=== PATIENT | female | born 1945 | race Caucasian/White ===

== ENCOUNTER 2017-03-30 08:36 | Emergency (ER) | payer OTHER ==
--- NOTE | 2017-03-30 08:40 | UC ---
Abdominal Pain Female HPI - HPI Summary HPI Summary: 72 YEAR OLD FEMALE PRESENTS WITH ABDOMINAL PAIN AND BACK PAIN. I WILL SEND HER TO THE ER TO RULE OUT AORTIC DISSECTION. - History of Current Complaint Stated Complaint: ADB PAIN,BACK PAIN Time Seen by Provider: 03/30/17 08:39 Allergies/Adverse Reactions: Allergies Allergy/AdvReac Type Severity Reaction Status Date / Time Erythromycin Allergy Itching Verified 03/30/17 08:47 PMH/Surg Hx/FS Hx/Imm Hx Previously Healthy: Yes - Surgical History Surgical History: Yes Surgery Procedure, Year, and Place: GALLBLADDER, HYSTERECTOMY,TONSILS, LSP SURGERY 5YRS AGO [facility], [place] - Family History Known Family History: Positive: Cardiac Disease - Social History Alcohol Use: Rare Substance Use Type: None Smoking Status (MU): Former Smoker When Did the Patient Quit Smoking/Using Tobacco: about 50 years ago - Immunization History Most Recent Influenza Vaccination: [id number] Review of Systems Constitutional: Negative Skin: Negative Eyes: Negative ENT: Negative Respiratory: Negative Cardiovascular: Negative Gastrointestinal: Abdominal Pain Genitourinary: Negative Motor: Negative Neurovascular: Negative Musculoskeletal: Other: - BACK PAIN Neurological: Negative Psychological: Negative All Other Systems Reviewed And Are Negative: Yes Physical Exam Triage Information Reviewed: Yes Eye Exam: Normal ENT Exam: Normal Dental Exam: Normal Neck exam: Normal Neck: Positive: 1 Respiratory Exam: Normal Cardiovascular Exam: Normal Musculoskeletal: Positive: Other: - LOWER BACK PAIN Neurological Exam: Normal Psychological Exam: Normal Skin Exam: Normal Abd Pain Female Course/Dx - Differential Dx/Diagnosis Provider Diagnoses: BACK PAIN. ABDOMINAL PAIN Discharge - Discharge Plan Condition: Stable Disposition: HOME Patient Education Materials: Abdominal Pain (ED) Referrals: Genet Waterman MD [Primary Care Provider] - Additional Instructions: PLEASE GO TO ER TO RULE OUT AORTIC DISSECTION.
[2017-03-30 09:02] VITALS: BP 145/62
== END 2017-03-30 09:10 | disposition home or self-care (01) ==
LOC: UCCORT 08:36
DX: R10.9 Unspecified abdominal pain (principal); M54.5 Low back pain; Z90.49 Acquired absence of other specified parts of digestive tract; Z90.710 Acquired absence of both cervix and uterus; Z98.49 Cataract extraction status, unspecified eye; Z88.1 Allergy status to other antibiotic agents; Z87.891 Personal history of nicotine dependence
CPT/HCPCS: 81003; 99211; G0463

== ENCOUNTER 2017-06-23 15:07 | Emergency (ER) | payer OTHER ==
--- NOTE | 2017-06-23 15:12 | UC ---
Back Pain HPI - HPI Summary HPI Summary: 72 year old female presents with severe pain between her shoulder pain and bilateral shoulder pain. - History of Current Complaint Stated Complaint: ENOCH SHLD PAIN DOWN ARMS/NECK/BACK Time Seen by Provider: 06/23/17 15:12 Hx Obtained From: Patient Onset/Duration: Sudden Onset Timing: Constant Severity Initially: Moderate Severity Currently: Moderate - Allergies/Home Medications Allergies/Adverse Reactions: Allergies Allergy/AdvReac Type Severity Reaction Status Date / Time Erythromycin Allergy Itching Verified 06/23/17 15:21 PMH/Surg Hx/FS Hx/Imm Hx Previously Healthy: Yes - Surgical History Surgical History: Yes Surgery Procedure, Year, and Place: GALLBLADDER, HYSTERECTOMY,TONSILS, LSP SURGERY 5YRS AGO [facility], [place] - Family History Known Family History: Positive: Cardiac Disease - Social History Alcohol Use: Rare Substance Use Type: None Smoking Status (MU): Former Smoker When Did the Patient Quit Smoking/Using Tobacco: about 50 years ago - Immunization History Most Recent Influenza Vaccination: [id number] Review of Systems Constitutional: Negative Skin: Negative Eyes: Negative ENT: Negative Respiratory: Negative Cardiovascular: Negative Gastrointestinal: Negative Genitourinary: Negative Motor: Negative Neurovascular: Negative Musculoskeletal: Other: - pain between the shoulder blades Neurological: Negative Psychological: Negative All Other Systems Reviewed And Are Negative: Yes Physical Exam Triage Information Reviewed: Yes Vital Signs Reviewed: Yes Eye Exam: Normal ENT Exam: Normal Dental Exam: Normal Neck exam: Normal Neck: Positive: 1 Respiratory Exam: Normal Cardiovascular Exam: Normal Abdominal Exam: Normal Musculoskeletal: Positive: Other: - pain between shoulder blades and bilateral shoulders Neurological Exam: Normal Psychological Exam: Normal Skin Exam: Normal Back Pain Course/Dx - Differential Dx/Diagnosis Provider Diagnoses: bilateral shoulder pain. pain between shoulder blades Discharge - Discharge Plan Condition: Stable Disposition: OTHER Discharge Disposition Comment: patient suggested to go to the er. Patient Education Materials: Back Pain (ED), Shoulder Pain (ED), Neck Pain (ED) Referrals: Genet Waterman MD [Primary Care Provider] - Additional Instructions: patient suggested to go to er for neck, shoulder and back pain not relieved by nsaid and muscle relaxants
[2017-06-23 15:21] VITALS: BP 146/78
== END 2017-06-23 15:44 ==
LOC: UCCORT 15:07
DX: M25.511 Pain in right shoulder (principal); M25.512 Pain in left shoulder; Z88.1 Allergy status to other antibiotic agents; Z87.891 Personal history of nicotine dependence
CPT/HCPCS: 99212; G0463